=== PATIENT | female | born 1980 | race Two or more races ===

== ENCOUNTER 2021-10-22 08:06 | Emergency (ER) | payer OTHER ==
[~2021-10-22] VITALS: Ht 160 cm; Wt 75.0 kg
[2021-10-22 08:08] VITALS: BP 162/91
[2021-10-22] MEDS ORDERED: ACETAMINOPHEN 325MG TABLET PO ONE (08:30)
[2021-10-22] MEDS ORDERED: AMLODIPINE 10MG TABLET PO ONE (08:30)
== END 2021-10-22 08:47 ==
LOC: ER 08:18
DX: I10 Essential (primary) hypertension (principal); R51.9 Headache, unspecified; E11.9 Type 2 diabetes mellitus without complications
CPT/HCPCS: 99283